=== PATIENT | female | born 2000 | race Caucasian/White ===

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

== ENCOUNTER → 2019-02-03 11:37 | Outpatient (CLI) | payer BC, SELFPAY ==
[2019-02-03 15:41] LABS: Absolute Lymphocyte Count 1.74 X10^3/ul (0.83-4.51); Absolute Neutrophil Count 3.9 X10^3/uL (2.0-7.7); Basophil# 0.02 X10^3/uL; Basophil% 0.3 % (0-1); Eosinophil# 0.11 X10^3/uL; Eosinophils% 1.8 % (0-5); Hematocrit 44.1 % (37-47); Hemoglobin 15.1 g/dl (12.0-15.0); Lymphocyte # 1.74 X10^3/ul (4.0); Lymphocyte % 28.3 % (19-41); Mean Corp Hgb Conc 34.2 g/gl (32-36); Mean Corpuscular Hgb 31.5 pg (27.0-32.0); Mean Corpuscular Volume 92.1 fL (81-99); Mean Platelet Vol. 10.1 fl (6.2-12.0); Monocyte# 0.39 X10^3/uL; Monocyte% 6.4 % (0-10); Neutrophil # 3.87 X10^3/uL (2.7-7.7); Platelet Count 266 K/mm3 (150-450); RBC Distribution Width CV 11.9 % (11.6-14.6); RBC Distribution Width SD 39.7 fl (35.1-43.9); Red Blood Count 4.79 M/mm3 (4.2-5.4); White Blood Count 6.1 K/mm3 (4.4-11.0)
[2019-02-03 15:44] LABS: POSITIVE COUNT NO; POSITIVE DIFFERENTIAL NO; POSITIVE MORPHOLOGY NO
[2019-02-03 17:13] LABS: Vitamin B12 459 pg/mL (211-911); Vitamin D,25 Hydroxy 39.3 ng/mL (29.95-100.01)
[2019-02-03 18:14] LABS: Anion Gap 13 (5-15); BUN 11 mg/dL (7-18); BUN/Creat Ratio 17.9 RATIO (10-20); Calcium,Total 9.1 mg/dL (8.5-10.1); Chloride 104 mmol/L (98-107); Creatinine, Serum 0.61 mg/dL (0.55-1.02); EST Glomerular Filtration Rate 133 mL/min (>60); Est Glom Filt Rate - Afr Amer 161 mL/min (>60); Ferritin 54 ng/mL (8-252); Glucose 82 mg/dL (74-106); Iron 170 ug/dL (50-170); Potassium 3.5 mmol/L (3.5-5.1); Sodium Level 140 mmol/L (136-145); Thyroid Stim Hormone (TSH) 2.88 uIU/mL (0.358-3.74)
== END ==
PROVIDERS: Family Provider Family Medicine; PCP Family Medicine; Referring Provider Family Medicine; Visit Provider Family Medicine
DX: I10 Essential (primary) hypertension (principal); D64.9 Anemia, unspecified; R53.83 Other fatigue
CPT/HCPCS: 36415; 80048; 82306; 82607; 82728; 83540; 84443; 85025

== ENCOUNTER 2019-02-17 08:43 | Outpatient (RCR) | payer BC, SELFPAY ==
--- NOTE | 2019-02-17 10:03 | HP.PTEVAL ---
Patient's Visit Information RADHA FLOWERS is a 18 year old F referred to Physical Therapy by Alejandro Hood with a diagnosis of R club foot. Date of Evaluation: 02/17/19 Physical Therapist: Carlos Jacobson PT, ATC - Visit Plan Frequency: 1x/Week Duration: 1 Week Plan: Pt is I with LE stretching program. Discharge - Subjective Findings: DOS: November 2018. Pt reports she had to have surgery due to her club foot deformity in her R LE. Pt reports this is the third surgery she has had on her R LE. Pt notes she has 2 jobs which both require her to stand on her feet, which eventually results in pain. Pt also notes she likes to go running, and this results in pain as well. Pt denies sleep difficulty secondary to pain. pt reports she is just here for one visit so that she can be educated on a HEP of LE stretching. Pt reports she has no limitations with ADL's and IADL's at this time. Pt denies tingling or numbness in R LE at this time. 4/10 at rest, 10/10 at worst (after standing all day long at work) - Pain R foot Pain Intensity (Out of 10): 4 Pain Intensity Range: 10 - Objective Neuro: B LE sensation is WNL to light touch. ROM: L foot DF= 20, PF= 60, Inv= 35, Ever= 10; R foot DF= -5, PF= 35, Inv= 0, Ever= 6. MMT: B ankles 5/5 throughout. Observation: Pt stands with excessive midfoot pronation. Pt also ambulates with early pronation during stance phase. - Goals Goal 1:: I with HEP after 1 visit Goal Time Frame: 1 Week - Rehabilitation Potential Physical Therapy Diagnosis: Pt has pain and limited ROM in R foot secondary to being S/P R club foot Rehabilitation Potential: Good - Anticipated Interventions Patient/Client Instruction: Educate patient on: Condition, Plan of Care For the Purpose of:: To improve self management Therapeutic Exercise to Include: Flexibilty training, Passive ROM For the Purpose of:: To decrease pain, To increase ROM Thank you for the opportunity to evaluate your patient. For Medicare and Medicare HMO plans, please review the plan of care and approve it. It will need to be FAXED BACK to us at [phone] for Medicare purposes. For Medicare only, by signing this I certify the plan of care. Please let me know if there are questions or concerns regarding this plan of care. Physician Signature: Date:
== END 2019-02-17 19:00 | disposition home or self-care (01) ==
LOC: PT 08:43
PROVIDERS: Family Provider Family Medicine; PCP Family Medicine; Visit Provider Orthopaedic Surgery Pediatric Orthopaedic Surgery
DX: M25.571 Pain in right ankle and joints of right foot (principal); G89.29 Other chronic pain
CPT/HCPCS: 97161

== ENCOUNTER → 2019-04-08 15:56 | Outpatient (CLI) | payer BC, SELFPAY | PROVIDERS: Family Provider Family Medicine; PCP Family Medicine; Referring Provider Otolaryngology Otolaryngology/Facial Plastic Surgery; Visit Provider Otolaryngology Otolaryngology/Facial Plastic Surgery | DX: J32.9 Chronic sinusitis, unspecified (principal); J02.9 Acute pharyngitis, unspecified; H66.90 Otitis media, unspecified, unspecified ear | CPT/HCPCS: 87070 ==

== ENCOUNTER → 2019-08-07 08:58 | Outpatient (CLI) | payer BC, SELFPAY ==
[2019-08-07 10:26] LABS: Anion Gap 6 (5-15); BUN 7 mg/dL (7-18); BUN/Creat Ratio 9.8 RATIO (10-20); Calcium,Total 9.5 mg/dL (8.5-10.1); Chloride 109 mmol/L (98-107); Cholesterol 167 mg/dL (200); Creatinine, Serum 0.71 mg/dL (0.55-1.02); EST Glomerular Filtration Rate 111 mL/min (>60); Est Glom Filt Rate - Afr Amer 135 mL/min (>60); Glucose 93 mg/dL (74-106); High Density Lipoprotein 50 mg/dL; Potassium 3.7 mmol/L (3.5-5.1); Sodium Level 141 mmol/L (136-145); Triglycerides 117 mg/dL; Very Low Density Lipoprotein 23 mg/dL (5-40)
== END ==
PROVIDERS: Family Provider Family Medicine; PCP Family Medicine; Referring Provider Family Medicine; Visit Provider Family Medicine
DX: I10 Essential (primary) hypertension (principal)
CPT/HCPCS: 36415; 80048; 80061

== ENCOUNTER → 2020-03-08 09:24 | Outpatient (CLI) | payer BC, SELFPAY ==
[2020-03-08 12:30] LABS: Erythrocyte Sedimentation Rate 13 mm/hr (0-20)
[2020-03-08 12:33] LABS: Absolute Lymphocyte Count 1.54 X10^3/uL (0.83-4.51); Absolute Neutrophil Count 5.8 X10^3/uL (2.0-7.7); Basophil# 0.06 X10^3/uL; Basophil% 0.7 % (0-1); Hematocrit 44.5 % (37-47); Hemoglobin 15.2 g/dL (12.0-15.0); Lymphocyte # 1.54 X10^3/ul (4.0); Lymphocyte % 19.2 % (19-41); Mean Corp Hgb Conc 34.2 g/dL (32-36); Mean Corpuscular Hgb 31.7 pg (27.0-32.0); Mean Corpuscular Volume 92.9 fL (81-99); Mean Platelet Vol. 9.7 fl (6.2-12.0); Monocyte# 0.65 X10^3/uL; Monocyte% 8.1 % (0-10); NRBC Flagged by Analyzer 0 % (0-5); Neutrophil # 5.75 X10^3/uL (2.7-7.7); Neutrophil % 71.6 % (47-70); Platelet Count 291 K/mm3 (150-450); RBC Distribution Width CV 11.9 % (11.6-14.6); RBC Distribution Width SD 39.8 fl (35.1-43.9); Red Blood Count 4.79 M/mm3 (4.2-5.4)
[2020-03-08 12:41] LABS: Vitamin D,25 Hydroxy 47.4 ng/mL
[2020-03-08 12:55] LABS: AST(SGOT) 22 U/L (15-37); Alanine Aminotransfer ALT/SGPT 30 U/L (13-56); Albumin, Serum 3.8 g/dL (3.2-5.0); Alkaline Phosphatase 75 U/L (45-117); Anion Gap 6 (5-15); BUN 12 mg/dL (7-18); Calcium,Total 9.7 mg/dL (8.5-10.1); Chloride 106 mmol/L (98-107); Creatinine, Serum 0.75 mg/dL (0.55-1.02); EST Glomerular Filtration Rate 104 mL/min (>60); Est Glom Filt Rate - Afr Amer 126 mL/min (>60); Glucose 86 mg/dL (74-106); Magnesium 2.2 mg/dL (1.6-2.6); Potassium 3.8 mmol/L (3.5-5.1); Protein, Total 7.8 g/dL (6.4-8.2); Sodium Level 137 mmol/L (136-145); T4 Free Direct 2.02 ng/dL (0.76-1.46); Thyroid Stim Hormone (TSH) 3.23 uIU/mL (0.358-3.74)
[2020-03-10 04:06] LABS: Alternaria alternata <0.10 kU/L (Class 0); Aspergillus fumigatus <0.10 kU/L (Class 0); Bahia Grass <0.10 kU/L (Class 0); Beef <0.10 kU/L (Class 0); Bermuda Grass <0.10 kU/L (Class 0); Bluegrass, Kentucky <0.10 kU/L (Class 0); Cat Hair/Dander, Standard <0.10 kU/L (Class 0); Cladosporium herbarum <0.10 kU/L (Class 0); Cockroach, American <0.10 kU/L (Class 0); Corn <0.10 kU/L (Class 0); D farinae Mite 0.26 kU/L (Class 0/I); D pteronyssinus 0.25 kU/L (Class 0/I); Dog Epithelia <0.10 kU/L (Class 0); Egg, Whole <0.10 kU/L (Class 0); Elm, American White <0.10 kU/L (Class 0); Hazelnut Tree <0.10 kU/L (Class 0); Hickory, White <0.10 kU/L (Class 0); Johnson Grass <0.10 kU/L (Class 0); Maple/Box Elder <0.10 kU/L (Class 0); Milk (Cow) <0.10 kU/L (Class 0); Mucor racemosus <0.10 kU/L (Class 0); Mugwort <0.10 kU/L (Class 0); Mulberry, White <0.10 kU/L (Class 0); Nettle <0.10 kU/L (Class 0); Oak, White 0.15 kU/L (Class 0/I); Peanut <0.10 kU/L (Class 0); Penicillium chrysogen <0.10 kU/L (Class 0); Pigweed, Rough 0.14 kU/L (Class 0/I); Plantain, English <0.10 kU/L (Class 0); Pork <0.10 kU/L (Class 0); Ragweed, Short/Common <0.10 kU/L (Class 0); Sheep Sorrel(Dock) <0.10 kU/L (Class 0); Soybean <0.10 kU/L (Class 0); Stemphylium herbarum <0.10 kU/L (Class 0); Sweet Gum <0.10 kU/L (Class 0); Sycamore, American <0.10 kU/L (Class 0); Wheat <0.10 kU/L (Class 0)
[2020-03-10 05:57] LABS: Chocolate <0.10 kU/L (Class 0)
== END ==
PROVIDERS: PCP Family Medicine; Visit Provider Family Medicine
DX: R42 Dizziness and giddiness (principal); R21 Rash and other nonspecific skin eruption; E55.9 Vitamin D deficiency, unspecified; E03.9 Hypothyroidism, unspecified
CPT/HCPCS: 36415; 80053; 82306; 83735; 84439; 84443; 85025; 85652; 86003; 86005

== ENCOUNTER → 2020-03-16 | Outpatient (CLI) | payer BC, SELFPAY ==
[2020-03-16 07:55] LABS: Glucose GTT- Fasting 90 mg/dL (74-106)
[2020-03-16 09:23] LABS: Glucose GTT-30 minutes 146 mg/dL (110-170)
[2020-03-16 09:30] LABS: Glucose GTT- 1 Hour 106 mg/dL (120-170)
[2020-03-16 10:56] LABS: Glucose GTT- 2 Hour 110 mg/dL (70-120)
[2020-03-16 12:13] LABS: Glucose GTT- 3 Hour 54 mg/dL (74-106)
[2020-03-16 12:44] LABS: Glucose GTT- 4 Hour 82 mg/dL (74-106)
[2020-03-16 13:44] LABS: Glucose GTT- 5 Hour 86 mg/dL (74-106)
== END | disposition home or self-care (01) ==
LOC: LAB 07:08
PROVIDERS: PCP Family Medicine; Referring Provider Family Medicine; Visit Provider Family Medicine
DX: R42 Dizziness and giddiness (principal); I10 Essential (primary) hypertension; E55.9 Vitamin D deficiency, unspecified; R21 Rash and other nonspecific skin eruption; E03.9 Hypothyroidism, unspecified
CPT/HCPCS: 36415; 82951; 82952

== ENCOUNTER → 2020-06-21 | Outpatient (CLI) | payer BC, SELFPAY | END | disposition home or self-care (01) | PROVIDERS: Visit Provider Family Medicine | DX: B34.9 Viral infection, unspecified (principal) | CPT/HCPCS: 87635; U0003 ==

== ENCOUNTER → 2020-09-06 10:05 | Outpatient (CLI) | payer BC, SELFPAY ==
[2020-09-06 12:11] LABS: Hemoglobin 14.3 g/dL (12.0-15.0); Mean Corpuscular Hgb 31.6 pg (27.0-32.0); Mean Corpuscular Volume 92.9 fL (81-99); Mean Platelet Vol. 9.9 fl (6.2-12.0); Platelet Count 290 K/mm3 (150-450); RBC Distribution Width SD 41.1 fl (35.1-43.9); Red Blood Count 4.52 M/mm3 (4.2-5.4)
[2020-09-06 12:48] LABS: Vitamin D,25 Hydroxy 34.8 ng/mL
[2020-09-06 13:27] LABS: Anion Gap 8 (5-15); BUN 10 mg/dL (7-18); BUN/Creat Ratio 12.3 RATIO (10-20); Calcium,Total 9.2 mg/dL (8.5-10.1); Chloride 109 mmol/L (98-107); Creatinine, Serum 0.81 mg/dL (0.55-1.02); EST Glomerular Filtration Rate 95 mL/min (>60); Est Glom Filt Rate - Afr Amer 115 mL/min (>60); Glucose 89 mg/dL (74-106); Iron 65 ug/dL (50-170); Potassium 4.1 mmol/L (3.5-5.1); Sodium Level 139 mmol/L (136-145); Thyroid Stim Hormone (TSH) 1.79 uIU/mL (0.358-3.74)
== END ==
PROVIDERS: PCP Family Medicine; Referring Provider Family Medicine; Visit Provider Family Medicine
DX: I10 Essential (primary) hypertension (principal); D64.9 Anemia, unspecified; E03.9 Hypothyroidism, unspecified; E55.9 Vitamin D deficiency, unspecified
CPT/HCPCS: 36415; 80048; 82306; 83540; 84443; 85027

== ENCOUNTER → 2020-10-25 10:51 | Outpatient (CLI) | payer BC, SELFPAY ==
[2020-10-25 12:14] LABS: Erythrocyte Sedimentation Rate 3 mm/hr (0-20)
[2020-10-25 12:17] LABS: Absolute Lymphocyte Count 1.35 X10^3/uL (0.83-4.51); Absolute Neutrophil Count 3.5 X10^3/uL (2.0-7.7); Basophil# 0.04 X10^3/uL; Basophil% 0.7 % (0-1); Eosinophil# 0.04 X10^3/uL; Eosinophils% 0.7 % (0-5); Hematocrit 42.9 % (37-47); Lymphocyte # 1.35 X10^3/ul (4.0); Lymphocyte % 25.2 % (19-41); Mean Corpuscular Volume 91.5 fL (81-99); Mean Platelet Vol. 10.3 fl (6.2-12.0); Monocyte# 0.41 X10^3/uL; Monocyte% 7.7 % (0-10); NRBC Flagged by Analyzer 0 % (0-5); Neutrophil # 3.49 X10^3/uL (2.7-7.7); Neutrophil % 65.3 % (47-70); Platelet Count 260 K/mm3 (150-450); RBC Distribution Width CV 11.5 % (11.6-14.6); RBC Distribution Width SD 38.2 fl (35.1-43.9); Red Blood Count 4.69 M/mm3 (4.2-5.4); White Blood Count 5.4 K/mm3 (4.4-11.0)
[2020-10-25 13:01] LABS: ALB/GLOB Ratio 1.1 RATIO (0.9-2.4); AST(SGOT) 11 U/L (15-37); Alanine Aminotransfer ALT/SGPT 23 U/L (13-56); Albumin, Serum 3.9 g/dL (3.2-5.0); Alkaline Phosphatase 64 U/L (45-117); Anion Gap 8 (5-15); BUN 15 mg/dL (7-18); BUN/Creat Ratio 19.9 RATIO (10-20); Calcium,Total 9.3 mg/dL (8.5-10.1); Chloride 109 mmol/L (98-107); Creatinine, Serum 0.75 mg/dL (0.55-1.02); EST Glomerular Filtration Rate 104 mL/min (>60); Est Glom Filt Rate - Afr Amer 125 mL/min (>60); Globulin 3.4 g/dL (2.2-4.2); Glucose 93 mg/dL (74-106); Potassium 3.9 mmol/L (3.5-5.1); Protein, Total 7.3 g/dL (6.4-8.2); Sodium Level 140 mmol/L (136-145)
== END ==
PROVIDERS: PCP Family Medicine; Referring Provider Family Medicine; Visit Provider Family Medicine
DX: R53.83 Other fatigue (principal)
CPT/HCPCS: 36415; 80053; 84443; 85025; 85652

== ENCOUNTER → 2020-10-25 | Outpatient (CLI) | payer BC, SELFPAY | END | disposition home or self-care (01) | PROVIDERS: PCP Family Medicine; Referring Provider Family Medicine; Visit Provider Family Medicine | DX: R53.83 Other fatigue (principal) | CPT/HCPCS: 87635; U0003 ==

== ENCOUNTER → 2020-11-02 14:35 | Outpatient (CLI) | payer BC, SELFPAY ==
[2020-11-02 13:10] VITALS: BMI 23.9
[2021-01-26 12:39] LABS: Aldosterone, Serum 10.7 ng/dL (0.0-30.0); Renin, Plasma 3.652 ng/mL/hr (0.167-5.380)
== END ==
PROVIDERS: PCP Internal Medicine; Referring Provider Internal Medicine; Visit Provider Internal Medicine
DX: I10 Essential (primary) hypertension (principal); G43.909 Migraine, unspecified, not intractable, without status migrainosus
CPT/HCPCS: 36415; 82088; 84244

== ENCOUNTER → 2020-11-07 | Outpatient (CLI) | payer BC, SELFPAY ==
[2020-11-02 13:10] VITALS: BMI 23.9
[2020-11-14 16:08] LABS: Metanephrine, Ur 40 ug/L (Undefined); Normetanephrines, 24Ur 243 ug/24 hr (90-315); Normetanephrines, Ur 81 ug/L (Undefined)
[2020-11-14 16:33] LABS: Metanephrines, 24Ur 120 ug/24 hr (36-209)
== END | disposition home or self-care (01) ==
LOC: LABSPEC 14:02
PROVIDERS: PCP Internal Medicine; Referring Provider Internal Medicine; Visit Provider Internal Medicine
DX: G43.909 Migraine, unspecified, not intractable, without status migrainosus (principal); I10 Essential (primary) hypertension
CPT/HCPCS: 81050; 83835

== ENCOUNTER → 2021-01-26 16:27 | Outpatient (CLI) | payer BC, SELFPAY ==
[2020-11-02 13:10] VITALS: BMI 23.9
== END ==
PROVIDERS: PCP Internal Medicine; Referring Provider Otolaryngology; Visit Provider Otolaryngology
DX: Z11.59 Encounter for screening for other viral diseases (principal)
CPT/HCPCS: 87635; C9803; U0002

== ENCOUNTER → 2021-04-07 15:31 | Outpatient (CLI) | payer BC, SELFPAY ==
[2021-02-16 14:16] VITALS: BMI 24.6
--- NOTE | 2021-04-07 15:39 | CT_ITS ---
STUDY: CT FACIAL BONES WITHOUT CONTRAST REASON FOR EXAM: Female, 20 years old. SINUSITIS RADIATION DOSAGE (If Supplied By Facility): CTDIvol = ( 33.06 ) mGy, DLP = ( 932.19 ) mGycm TECHNIQUE: The patient was scanned in a multi detector CT scanner. Sagittal and coronal images were reconstructed. Individualized dose optimization techniques were used for this CT. COMPARISON: None. FINDINGS: Normal soft tissue structures. Normal orbital heredia and orbital contents. Normal nasal bones and anterior nasal spine. Normal facial bones. There is no demonstrated fracture. Slightly right deviated nasal septum. Trace mucosal thickening of the right sphenoid sinus cavity. CT/Sinus/Facial Bone IMPRESSION: Trace sphenoid sinus mucosal thickening. Electronically Signed: Simone Yañez DO at 17:18 EDT Tel [phone], Service support ,
== END ==
PROVIDERS: PCP Internal Medicine; Referring Provider Otolaryngology; Visit Provider Otolaryngology
DX: J32.9 Chronic sinusitis, unspecified (principal)
CPT/HCPCS: 70486

== ENCOUNTER → 2021-04-28 08:38 | Outpatient (CLI) | payer BC, SELFPAY ==
[2021-02-16 14:16] VITALS: BMI 24.6
[2021-05-10 04:14] LABS: Alternaria tenuis <0.10 kU/L (Class 0); Ash, White 0.19 kU/L (Class 0/I); Aspergillus fumigatus <0.10 kU/L (Class 0); Bermuda Grass 0.13 kU/L (Class 0/I); Black Walnut 0.22 kU/L (Class 0/I); Cat Hair / Dander,Stand <0.10 kU/L (Class 0); Cladosporium herbarum <0.10 kU/L (Class 0); Cockroach, American 0.37 kU/L (Class I); D pteronyssinus 0.28 kU/L (Class 0/I); Dog Epithelia <0.10 kU/L (Class 0); Elm, American White 0.15 kU/L (Class 0/I); Immunoglobulin E 16 IU/mL (6-495); Maple/Box Elder 0.18 kU/L (Class 0/I); Mulberry, White <0.10 kU/L (Class 0); Oak, White 0.39 kU/L (Class I); Pecan 0.11 kU/L (Class 0/I); Penicillium Notatum <0.10 kU/L (Class 0); Pigweed, Rough 0.14 kU/L (Class 0/I); Ragweed, Short/Common <0.10 kU/L (Class 0); Russian Thistle 0.11 kU/L (Class 0/I); Sheep Sorrel 0.21 kU/L (Class 0/I); Sycamore, American 0.26 kU/L (Class 0/I); Timothy Grass 0.21 kU/L (Class 0/I)
[2021-05-10 11:38] LABS: Mouse Urine <0.10 kU/L (Class 0)
== END ==
PROVIDERS: PCP Internal Medicine; Referring Provider Otolaryngology; Visit Provider Otolaryngology
DX: T78.40XA Allergy, unspecified, initial encounter (principal)
CPT/HCPCS: 36415; 82785; 86003

== ENCOUNTER → 2021-06-13 | Outpatient (CLI) | payer BC, SELFPAY ==
[2021-02-16 14:16] VITALS: BMI 24.6
--- NOTE | 2021-06-13 08:52 | NASAL_PTH ---
PATIENT: RAD[id number] AGE/SX: 20/F ROOM: RE06/13/[address]: Dr. Chance Flood MD : 2000 BED: DIS: 06/13/2021 SPEC #: [id number] RECD: 06/13/21 14:52 STATUS: CRISTINA MIDDLETON #: [id number] JENNIFER: 06/13/21 08:[address]: Chance Flood DEPT: SURGICAL PATHOLOGY RECD BY: Kelly Castellanos ENTERED: 06/14/21 09:41 SP TYPE: NASAL SPEC OTHR DR: Dr. Jeanette Webber MD [facility] Tissues: A - Nasal septum, NOS B - Nasal septum, NOS Procedures: Decalcification bone/plaque Surgery Specimen Level IV HEADER OPERATION: Septorhinoplasty, functional endoscopy PRE-OP DIAGNOSIS: Chronic pansinusitis, nasal congestion, deviated nasal septum, hypertrophy of nasal turbinates TISSUE SUBMITTED: A ? Right sinus contents, B ? Left sinus contents MICROSCOPIC DIAGNOSIS A. Right sinus contents: Fragments of respiratory mucosa with chronic inflammation and bone. B. Left sinus contents: Fragments of respiratory mucosa including turbinate with chronic inflammation and bone. IVONE:dorothy 06/19/2021 MICROSCOPIC DESCRIPTION Slides are reviewed. GROSS DESCRIPTION A - Received in fixative is one container labeled with the patient's name and designated right sinus contents. The specimen consists of multiple irregular fragments of mauricio soft tissue mixed with possible fragments of bone that in aggregate measure 1.5 x 2 x 0.3 cm. The entire specimen is submitted in one cassette after decalcification. B - Received in fixative is one container labeled with the patient's name and designated left sinus contents. The specimen consists of multiple irregular fragments of mauricio-pink soft tissue mixed with possible fragments of bone that in aggregate measure 2.5 x 1 x 0.2 cm. A piece of mucosal tissue with underlying bone consistent with turbinate is also noted measuring 2 x 0.7 x 0.5 cm. This piece is bisected. The entire specimen is submitted in one cassette after decalcification. / IVONE:dorothy 06/14/21 TC:3 CPT: 69529 x2, 80054 x2
== END | disposition home or self-care (01) ==
LOC: LABSPEC 15:55
PROVIDERS: PCP Internal Medicine; Referring Provider Otolaryngology; Visit Provider Otolaryngology
DX: J32.4 Chronic pansinusitis (principal); J34.89 Other specified disorders of nose and nasal sinuses; J34.3 Hypertrophy of nasal turbinates
CPT/HCPCS: 88304; 88305; 88311

== ENCOUNTER → 2021-10-25 16:38 | Outpatient (CLI) | payer BC, SELFPAY ==
[2021-10-25 17:58] LABS: Absolute Lymphocyte Count 2.28 X10^3/uL (0.83-4.51); Absolute Neutrophil Count 3.5 X10^3/uL (2.0-7.7); Basophil# 0.04 X10^3/uL; Basophil% 0.6 % (0-1); Eosinophil# 0.27 X10^3/uL; Hematocrit 37.5 % (37-47); Lymphocyte # 2.28 X10^3/ul (0.83-4.51); Mean Corp Hgb Conc 34.7 g/dL (32-36); Mean Corpuscular Hgb 32.4 pg (27.0-32.0); Mean Corpuscular Volume 93.5 fL (81-99); Mean Platelet Vol. 9.6 fl (6.2-12.0); Monocyte# 0.59 X10^3/uL; Monocyte% 8.8 % (0-10); NRBC Flagged by Analyzer 0 % (0-5); Neutrophil # 3.52 X10^3/uL (2.7-7.7); Neutrophil % 52.5 % (47-70); Platelet Count 219 K/mm3 (150-450); RBC Distribution Width CV 11.6 % (11.6-14.6); RBC Distribution Width SD 40.1 fl (35.1-43.9); Red Blood Count 4.01 M/mm3 (4.2-5.4); White Blood Count 6.7 K/mm3 (4.4-11.0)
[2021-10-25 18:37] LABS: Vitamin D,25 Hydroxy 32.6 ng/mL
[2021-10-25 18:49] LABS: Anion Gap 8 (5-15); BUN 12 mg/dL (7-18); BUN/Creat Ratio 16.7 RATIO (10-20); Chloride 105 mmol/L (98-107); Creatinine, Serum 0.72 mg/dL (0.55-1.02); EST Glomerular Filtration Rate 108 mL/min (>60); Est Glom Filt Rate - Afr Amer 131 mL/min (>60); Ferritin 140 ng/mL (8-252); Glucose 81 mg/dL (74-106); Iron 104 ug/dL (50-170); Potassium 3.4 mmol/L (3.5-5.1); Sodium Level 138 mmol/L (136-145); T4 Free Direct 1.75 ng/dL (0.76-1.46); Thyroid Stim Hormone (TSH) 0.58 uIU/mL (0.358-3.74)
== END ==
PROVIDERS: PCP Family Medicine; Referring Provider Family Medicine; Visit Provider Family Medicine
DX: E55.9 Vitamin D deficiency, unspecified (principal); E61.1 Iron deficiency; I10 Essential (primary) hypertension; E03.9 Hypothyroidism, unspecified
CPT/HCPCS: 36415; 80048; 82306; 82728; 83540; 84439; 84443; 85025